=== PATIENT | female | born 1965 | race African-American/Black ===

== ENCOUNTER 2018-05-09 06:56 | Emergency (ER) | payer SELFPAY ==
[~2018-05-09] VITALS: Ht 154.9 cm; Wt 68.0 kg
[2018-05-09] MEDS ORDERED: SODIUM CHLORIDE 0.9% 1,000 ML IV ONE (07:30)
[2018-05-09] MEDS ORDERED: LEVETIRACETAM 1000MG/100ML 100 ML IV ONE (07:30)
[2018-05-09 09:20] VITALS: BP 124/81
== END 2018-05-09 09:23 | disposition home or self-care (01) ==
LOC: ER 06:56
DX: G40.909 Epilepsy, unspecified, not intractable, without status epilepticus (principal); Z91.14 Patient's other noncompliance with medication regimen
CPT/HCPCS: 96365; 99284; J1953; J7030; Z7610

== ENCOUNTER 2018-07-10 08:35 | Emergency (ER) | payer SELFPAY ==
[~2018-07-10] VITALS: Ht 157.5 cm; Wt 50.0 kg
[2018-07-10] MEDS ORDERED: LEVETIRACETAM 1000MG/100ML 100 ML IV ONE (09:15)
[2018-07-10 10:03] LABS: BASOPHILS % 0.9 % (0.0-2.0); EOSINOPHILS % 1.3 % (0.0-5.0); HEMOGLOBIN. 14.2 g/dL (12.0-16.0); LYMPHOCYTES % 32.3 % (20.0-50.0); MEAN CORPUSCULAR HEMOGLOBIN 31.5 pg (28.0-32.0); MEAN CORPUSCULAR VOLUME 92.9 fL (81.0-99.0); MEAN PLATELET VOLUME 8.2 fl (7.4-10.4); MONOCYTES % 9.3 % (2.0-8.0); NEUTROPHILS % 56.2 % (40.0-76.0); PLATELET 246 x1000/uL (130-400); RED BLOOD CELL COUNT 4.52 mill/uL (4.2-5.4); RED CELL DISTRIBUTION WIDTH 13.7 % (11.6-14.6)
[2018-07-10 10:10] LABS: CHLORIDE 104 mEq/L (98-107)
[2018-07-10 10:14] LABS: ETHANOL BLOOD < 10 mg/dL
[2018-07-10 10:34] LABS: CLARITY URINE TURBID (CLEAR); COLOR URINE DARK YELLOW (YELLOW); KETONES URINE NEGATIVE (NEGATIVE); LEUKOCYTE ESTERASE URINE TRACE (NEGATIVE); NITRITE URINE NEGATIVE (NEGATIVE); OCCULT BLOOD URINE NEGATIVE (NEGATIVE); PROTEIN URINE TRACE (NEGATIVE)
[2018-07-10 11:23] LABS: *AMPHETAMINES SCREEN URINE PRESUMTIVE POSITIVE (NEGATIVE); *BARBITURATES SCREEN URINE NEGATIVE (NEGATIVE); *BENZODIAZEPINES SCREEN URINE NEGATIVE (NEGATIVE); *COCAINE SCREEN URINE PRESUMTIVE POSITIVE (NEGATIVE); METHADONE URINE SCREEN NEGATIVE (NEGATIVE)
[2018-07-10 11:24] LABS: CANNABINOID URINE SCREEN PRESUMTIVE POSITIVE (NEGATIVE); OPIATES URINE SCREEN NEGATIVE (NEGATIVE); PHENCYCLIDINE URINE SCREEN NEGATIVE (NEGATIVE)
[2018-07-10 11:32] VITALS: BP 130/74
== END 2018-07-10 12:37 | disposition home or self-care (01) ==
LOC: ER 08:35
DX: R56.9 Unspecified convulsions (principal); I10 Essential (primary) hypertension; F17.200 Nicotine dependence, unspecified, uncomplicated; F14.10 Cocaine abuse, uncomplicated
CPT/HCPCS: 36415; 80053; 80305; 81003; 85025; 96365; 99284; G0482; J1953

== ENCOUNTER 2018-10-02 09:41 | Emergency (ER) | payer SELFPAY ==
[~2018-10-02] VITALS: Ht 162.6 cm; Wt 70.0 kg
[2018-10-02] MEDS ORDERED: LEVETIRACETAM 1000MG/100ML 100 ML IV ONE (10:15)
[2018-10-02 10:43] LABS: CLARITY URINE CLEAR (CLEAR); COLOR URINE YELLOW (YELLOW); KETONES URINE NEGATIVE (NEGATIVE); LEUKOCYTE ESTERASE URINE 1+ (NEGATIVE); NITRITE URINE NEGATIVE (NEGATIVE); OCCULT BLOOD URINE NEGATIVE (NEGATIVE); PROTEIN URINE NEGATIVE (NEGATIVE); SPECIFIC GRAVITY URINE 1.018 (1.005-1.030); UROBILINOGEN URINE 0.2 E.U./dL (0.2-1.0)
[2018-10-02 10:57] LABS: BASOPHILS % 1.2 % (0.0-2.0); EOSINOPHILS % 1.2 % (0.0-5.0); HEMATOCRIT. 39.4 % (36.0-48.0); HEMOGLOBIN. 13.4 g/dL (12.0-16.0); LYMPHOCYTES % 29.4 % (20.0-50.0); MEAN CORPUSCULAR HEMOGLOBIN 31.6 pg (28.0-32.0); MEAN CORPUSCULAR VOLUME 93.2 fL (81.0-99.0); MEAN PLATELET VOLUME 7.9 fl (7.4-10.4); MONOCYTES % 8.1 % (2.0-8.0); NEUTROPHILS % 60.1 % (40.0-76.0); PLATELET 240 x1000/uL (130-400); RED BLOOD CELL COUNT 4.23 mill/uL (4.2-5.4)
[2018-10-02 11:00] LABS: *AMPHETAMINES SCREEN URINE NEGATIVE (NEGATIVE); *BARBITURATES SCREEN URINE NEGATIVE (NEGATIVE); *BENZODIAZEPINES SCREEN URINE NEGATIVE (NEGATIVE); *COCAINE SCREEN URINE NEGATIVE (NEGATIVE)
[2018-10-02 11:01] LABS: CANNABINOID URINE SCREEN PRESUMTIVE POSITIVE (NEGATIVE); METHADONE URINE SCREEN NEGATIVE (NEGATIVE); OPIATES URINE SCREEN NEGATIVE (NEGATIVE); PHENCYCLIDINE URINE SCREEN NEGATIVE (NEGATIVE)
[2018-10-02 11:04] LABS: CHLORIDE 106 mEq/L (98-107); ETHANOL BLOOD < 10 mg/dL
[2018-10-02 11:39] VITALS: BP 135/89
== END 2018-10-02 11:40 | disposition home or self-care (01) ==
LOC: ER 10:06
DX: R56.9 Unspecified convulsions (principal); I10 Essential (primary) hypertension
CPT/HCPCS: 36415; 80053; 80305; 81003; 82962; 85025; 96365; 99284; G0482; J1953

== ENCOUNTER 2019-07-20 13:15 | Inpatient (IN) | payer MEDICAID ==
[~2019-07-20] VITALS: Ht 162.6 cm; Wt 68.0 kg
[2019-07-20] MEDS ORDERED: LEVETIRACETAM 500MG PREMIX 100 ML IV ONE (13:30)
[2019-07-20 14:11] LABS: BASOPHILS % 0.7 % (0.0-2.0); HEMATOCRIT. 41.3 % (36.0-48.0); HEMOGLOBIN. 13.3 g/dL (12.0-16.0); LYMPHOCYTES % 10.6 % (20.0-50.0); MEAN CORPUSCULAR HEMOGLOBIN 29.7 pg (28.0-32.0); MEAN CORPUSCULAR VOLUME 91.9 fL (81.0-99.0); MEAN PLATELET VOLUME 8.1 fl (7.4-10.4); MONOCYTES % 4.2 % (2.0-8.0); NEUTROPHILS % 84.5 % (40.0-76.0); PLATELET 262 x1000/uL (130-400)
[2019-07-20 14:13] LABS: CHLORIDE 106 mEq/L (98-107)
[2019-07-20 14:17] LABS: ETHANOL BLOOD < 10 mg/dL
[2019-07-20] MEDS ORDERED: PHENYTOIN SODIUM 1,000 MG in SODIUM CHLORIDE 0.9% 100 ML IV ONE (16:15)
[2019-07-20] MEDS ORDERED: SODIUM CHLORIDE 0.9% 1,000 ML IV ONE (16:48)
[2019-07-20] MEDS ORDERED: ONDANSETRON HCL 4MG/2ML INJ IV PRN (17:30)
[2019-07-20] MEDS ORDERED: ACETAMINOPHEN 325MG TABLET PO PRN (17:30)
[2019-07-20] MEDS ORDERED: GUAIFENESIN 200MG/10ML SUGAR FREE UDC PO PRN (17:30)
[2019-07-20] MEDS ORDERED: CLONIDINE 0.1MG TABLET PO PRN (17:30)
[2019-07-20] MEDS ORDERED: HYDROCODONE/ACETAMINOPHEN 5/325MG TABLET PO PRN (17:30)
[2019-07-20] MEDS ORDERED: LORAZEPAM 2MG/ML CPJ IV PRN (17:30)
[2019-07-20] MEDS ORDERED: DOCUSATE SODIUM 100MG CAPSULE PO PRN (17:30)
[2019-07-20 21:40] VITALS: BP 141/76
[2019-07-20] MEDS ORDERED: DEXT 5%/0.45% NACL 1000ML 1,000 ML IV SCH (21:45)
[2019-07-20 21:57] VITALS: BP 141/76
[2019-07-20] MEDS ORDERED: PHEN100C4 MT (22:18)
[2019-07-20] MEDS ORDERED: LEVE1000 MT (22:18)
[2019-07-21] VITALS: BP 146/86
[2019-07-21] MEDS ORDERED: LEVETIRACETAM 500 MG in SODIUM CHLORIDE 0.9% 100 ML IV SCH ×2 (00:15→06:00)
[2019-07-21 00:44] LABS: CREATINE KINASE 288 IU/L (26-192)
[2019-07-21 03:26] LABS: *AMPHETAMINES SCREEN URINE NEGATIVE (NEGATIVE)
[2019-07-21 03:27] LABS: *BARBITURATES SCREEN URINE NEGATIVE (NEGATIVE); *BENZODIAZEPINES SCREEN URINE NEGATIVE (NEGATIVE); *COCAINE SCREEN URINE NEGATIVE (NEGATIVE); METHADONE URINE SCREEN NEGATIVE (NEGATIVE); OPIATES URINE SCREEN NEGATIVE (NEGATIVE); PHENCYCLIDINE URINE SCREEN NEGATIVE (NEGATIVE)
[2019-07-21 03:28] LABS: CANNABINOID URINE SCREEN PRESUMTIVE POSITIVE (NEGATIVE)
[2019-07-21 04:00] VITALS: BP 138/73
[2019-07-21 07:37] LABS: CHLORIDE 107 mEq/L (98-107)
[2019-07-21 07:48] LABS: CREATINE KINASE 330 IU/L (26-192)
[2019-07-21 08:00] VITALS: BP 127/75
[2019-07-21] MEDS ORDERED: ENOXAPARIN 40MG/0.4ML SYR SUBCUT SCH (09:00)
[2019-07-21 10:30] LABS: BASOPHILS % 0.7 % (0.0-2.0); EOSINOPHILS % 0.3 % (0.0-5.0); HEMATOCRIT. 38.1 % (36.0-48.0); HEMOGLOBIN. 12.9 g/dL (12.0-16.0); LYMPHOCYTES % 20.6 % (20.0-50.0); MEAN CORPUSCULAR HEMOGLOBIN 30.3 pg (28.0-32.0); MEAN CORPUSCULAR VOLUME 89.8 fL (81.0-99.0); MEAN PLATELET VOLUME 7.9 fl (7.4-10.4); MONOCYTES % 9.6 % (2.0-8.0); NEUTROPHILS % 68.8 % (40.0-76.0); PLATELET 225 x1000/uL (130-400); RED BLOOD CELL COUNT 4.24 mill/uL (4.2-5.4); RED CELL DISTRIBUTION WIDTH 15.9 % (11.6-14.6)
[2019-07-21 12:00] VITALS: BP 125/86
[2019-07-21] MEDS ORDERED: PHENYTOIN SODIUM 100MG/2ML VIAL IV SCH (14:00)
[2019-07-21 14:24] VITALS: BP 125/86
== END 2019-07-21 15:50 | disposition home or self-care (01) | DRG 53 ==
LOC: ER 13:15 → 5WST 17:24 → EDBEDREQ 17:27 → ENRESERV 19:50
PROVIDERS: ADMIT Hospitalist; ATTEND Hospitalist
DX: G40.909 Epilepsy, unspecified, not intractable, without status epilepticus (principal); Z91.14 Patient's other noncompliance with medication regimen
CPT/HCPCS: 36415; 71045; 80185; 80305; 80320; 82550; 84484; 93005; 93970; 96374; 99285; J1165; J1650; J1953; J7030; J7050; G0480

== ENCOUNTER 2020-01-05 09:10 | Inpatient (IN) | payer MEDICAID, OTHER ==
[~2020-01-05] VITALS: Ht 157.5 cm; Wt 66.7 kg
[~2020-01-05 09:10] MED LIST: LEVE1000 MT; PHEN100C4 MT
[2020-01-05] MEDS ORDERED: SODIUM CHLORIDE 0.9% 1,000 ML IV ONE (10:14)
[2020-01-05] MEDS ORDERED: ONDANSETRON HCL 4MG/2ML INJ IV ONE (10:15)
[2020-01-05] MEDS ORDERED: LORAZEPAM 2MG/ML CPJ IV ONE (10:45)
[2020-01-05] MEDS ORDERED: LORAZEPAM 2MG/ML CPJ ONE (10:48)
[2020-01-05 10:53] LABS: BASOPHILS % 0.5 % (0.0-2.0); EOSINOPHILS % 0.1 % (0.0-5.0); HEMATOCRIT. 40.1 % (36.0-48.0); HEMOGLOBIN. 13.8 g/dL (12.0-16.0); LYMPHOCYTES % 11.8 % (20.0-50.0); MEAN CORPUSCULAR HEMOGLOBIN 31.2 pg (28.0-32.0); MEAN PLATELET VOLUME 7.9 fl (7.4-10.4); MONOCYTES % 3.8 % (2.0-8.0); NEUTROPHILS % 83.8 % (40.0-76.0); PLATELET 256 x1000/uL (130-400); RED BLOOD CELL COUNT 4.41 mill/uL (4.2-5.4); RED CELL DISTRIBUTION WIDTH 14.3 % (11.6-14.6)
[2020-01-05 10:59] LABS: CHLORIDE 108 mEq/L (98-107)
[2020-01-05 11:03] LABS: ETHANOL BLOOD < 10 mg/dL
[2020-01-05 11:39] LABS: CLARITY URINE TURBID (CLEAR); COLOR URINE YELLOW (YELLOW); KETONES URINE NEGATIVE (NEGATIVE); LEUKOCYTE ESTERASE URINE 1+ (NEGATIVE); NITRITE URINE NEGATIVE (NEGATIVE); OCCULT BLOOD URINE 1+ (NEGATIVE); PH URINE 8.5 (4.5-8.0); PROTEIN URINE NEGATIVE (NEGATIVE); SPECIFIC GRAVITY URINE 1.017 (1.005-1.030); UROBILINOGEN URINE 0.2 E.U./dL (0.2-1.0)
[2020-01-05] MEDS ORDERED: CEFTRIAXONE 1 G PREMIX 50 ML IV ONE (12:00)
[2020-01-05 12:30] LABS: *AMPHETAMINES SCREEN URINE NEGATIVE (NEGATIVE); *BARBITURATES SCREEN URINE NEGATIVE (NEGATIVE); *BENZODIAZEPINES SCREEN URINE NEGATIVE (NEGATIVE); *COCAINE SCREEN URINE NEGATIVE (NEGATIVE); METHADONE URINE SCREEN NEGATIVE (NEGATIVE)
[2020-01-05] MEDS ORDERED: PHENYTOIN SODIUM 1,000 MG in SODIUM CHLORIDE 0.9% 100 ML IV ONE (12:30)
[2020-01-05 12:31] LABS: CANNABINOID URINE SCREEN PRESUMTIVE POSITIVE (NEGATIVE); OPIATES URINE SCREEN NEGATIVE (NEGATIVE); PHENCYCLIDINE URINE SCREEN NEGATIVE (NEGATIVE)
[2020-01-05] MEDS ORDERED: GUAIFENESIN 200MG/10ML SUGAR FREE UDC PO PRN (14:15)
[2020-01-05] MEDS ORDERED: IPRATROPIUM/ALBUTEROL 0.5-3(2.5)MG/3ML NEB HHN PRN (14:15)
[2020-01-05] MEDS ORDERED: LORAZEPAM 2MG/ML CPJ IV PRN (14:15)
[2020-01-05] MEDS ORDERED: CLONIDINE 0.1MG TABLET PO PRN (14:15)
[2020-01-05] MEDS ORDERED: ONDANSETRON HCL 4MG/2ML INJ IV PRN (14:15)
[2020-01-05] MEDS ORDERED: ACETAMINOPHEN 325MG TABLET PO PRN (14:15)
[2020-01-05] MEDS ORDERED: ENOXAPARIN 40MG/0.4ML SYR SUBCUT SCH (14:15)
[2020-01-05] MEDS ORDERED: DIPHENHYDRAMINE 50MG/ML VIAL IV PRN (14:15)
[2020-01-05] MEDS ORDERED: PHENYTOIN SODIUM 100MG/2ML VIAL IV NR (17:06)
[2020-01-05] MEDS ORDERED: LEVETIRACETAM 500MG PREMIX 100 ML IV NR (17:10)
[2020-01-05 23:20] VITALS: BP 102/47
[2020-01-05 23:30] VITALS: BP 102/47
[2020-01-05] MEDS ORDERED: ASPI-1497 PO (23:38)
[2020-01-06 04:00] VITALS: BP 109/51
[2020-01-06 07:48] LABS: CHLORIDE 109 mEq/L (98-107)
[2020-01-06 07:59] LABS: LDL CHOLESTEROL 104 mg/dL (5-100)
[2020-01-06 08:00] VITALS: BP 101/63
[2020-01-06 08:00] LABS: HDL CHOLESTEROL 103 mg/dL (40-59)
[2020-01-06 08:09] LABS: BASOPHILS % 0.5 % (0.0-2.0); EOSINOPHILS % 0.2 % (0.0-5.0); HEMOGLOBIN. 12.5 g/dL (12.0-16.0); LYMPHOCYTES % 23.1 % (20.0-50.0); MEAN CORPUSCULAR HEMOGLOBIN 31.4 pg (28.0-32.0); MEAN CORPUSCULAR VOLUME 90.5 fL (81.0-99.0); MEAN PLATELET VOLUME 8.1 fl (7.4-10.4); MONOCYTES % 9.3 % (2.0-8.0); NEUTROPHILS % 66.9 % (40.0-76.0); PLATELET 241 x1000/uL (130-400); RED BLOOD CELL COUNT 3.98 mill/uL (4.2-5.4); RED CELL DISTRIBUTION WIDTH 14.4 % (11.6-14.6)
[2020-01-06] MEDS: PHENYTOIN SODIUM 100MG/2ML VIAL IV SCH ×3 (08:42→21:17)
[2020-01-06] MEDS: ENOXAPARIN 40MG/0.4ML SYR SUBCUT SCH (08:44)
[2020-01-06] MEDS ORDERED: LEVETIRACETAM 500MG PREMIX 100 ML IV SCH (09:00)
[2020-01-06 20:00] VITALS: BP 123/76
[2020-01-06] MEDS: LEVETIRACETAM 500MG PREMIX 100 ML IV SCH (22:32)
[2020-01-07] VITALS: BP 132/69
[2020-01-07 04:00] VITALS: BP 130/78
[2020-01-07] MEDS: PHENYTOIN SODIUM 100MG/2ML VIAL IV SCH ×2 (05:30→14:09)
[2020-01-07 08:00] VITALS: BP 123/74
[2020-01-07] MEDS: LEVETIRACETAM 500MG PREMIX 100 ML IV SCH (09:18)
[2020-01-07] MEDS: ENOXAPARIN 40MG/0.4ML SYR SUBCUT SCH (09:20)
[2020-01-07 12:00] VITALS: BP_SYST 123; BP_SYST 130; BP_DIAS 74; BP_DIAS 76
[2020-01-07 18:01] VITALS: BP 157/73
== END 2020-01-07 19:08 | disposition home or self-care (01) | DRG 53 ==
LOC: ER 09:10 → 5WST 12:03 → EDBEDREQ 13:37 → EDBEDREQTM 13:37 → ENRESERV 20:49
PROVIDERS: ADMIT Internal Medicine; ATTEND Internal Medicine
DX: G40.909 Epilepsy, unspecified, not intractable, without status epilepticus (principal); G92 Toxic encephalopathy; R32 Unspecified urinary incontinence; F17.210 Nicotine dependence, cigarettes, uncomplicated; I10 Essential (primary) hypertension; Z91.14 Patient's other noncompliance with medication regimen; Z91.19 Patient's noncompliance with other medical treatment and regimen
CPT/HCPCS: 36415; 70551; 71045; 80053; 80061; 80185; 80305; 80320; 81003; 84443; 85025; 87077; 87186; 93970; 99285; J0696; J1165; J1650; J1953; J2060; J2405; J7030; J7050; G0480